=== PATIENT | male | born 1960 | race African-American/Black ===

== ENCOUNTER 2023-03-02 14:05 | Inpatient (IN) | payer OTHER ==
[2023-03-02 14:42] VITALS: BMI 29.4
[2023-03-02] MEDS ORDERED: BENZOCAINE/MENTHOL (CHLORASEPTIC ) LOZENGE MM PRN (14:53)
[2023-03-02] MEDS ORDERED: BENZONATATE 200 MG CAPSULE PO PRN (14:53)
[2023-03-02] MEDS ORDERED: MAGNESIUM HYDROX 2400MG/30ML ORAL SUSPENSION 30 ML CUP PO PRN (14:53)
[2023-03-02] MEDS ORDERED: guaiFENesin 600 MG TABLET.ER (FP) PO PRN (14:53)
[2023-03-02] MEDS ORDERED: METHOCARBAMOL 500 MG TABLET PO PRN (14:53)
[2023-03-02] MEDS ORDERED: LOPERAMIDE HCL 2 MG CAPSULE PO PRN (14:53)
[2023-03-02] MEDS ORDERED: BISMUTH SUBSALICYLATE 262 MG/15 ML BTL PO PRN (14:53)
[2023-03-02] MEDS ORDERED: NALOXONE HCL (KLOXXADO) 8 MG SPRAY NS PRN (14:53)
[2023-03-02] MEDS ORDERED: NICOTINE 10 MG CARTRIDGE (INHALER) IH PRN (14:53)
[2023-03-02] MEDS ORDERED: MAG HYDROX/AL HYDROX/SIMETH 30 ML UNIT-DOSE CUP PO PRN (14:53)
[2023-03-02] MEDS ORDERED: NICOTINE POLACRILEX 2 MG GUM BUC PRN (14:53)
[2023-03-02] MEDS ORDERED: POLYETHYLENE GLYCOL (HEALTHYLAX) 3350 17 GM PACKET PO PRN (14:53)
[2023-03-02] MEDS ORDERED: hydrOXYzine PAMOATE 25 MG CAPSULE (FP) PO PRN (14:53)
[2023-03-02] MEDS ORDERED: NICOTINE 14 MG/24 HOURS TOPICAL PATCH TD PRN (14:53)
[2023-03-02] MEDS ORDERED: ACETAMINOPHEN 325 MG TABLET (FP) PO PRN (14:53)
[2023-03-02] MEDS ORDERED: diazePAM 5 MG TABLET PO PRN (14:53)
[2023-03-02] MEDS ORDERED: DICYCLOMINE HCL 10 MG CAPSULE PO PRN (14:53)
[2023-03-02] MEDS ORDERED: cloNIDine HCL 0.1 MG TABLET PO PRN (14:53)
[2023-03-02] MEDS ORDERED: NALOXONE HCL 0.4 MG/ML VIAL IM PRN (14:53)
[2023-03-02] MEDS ORDERED: IBUPROFEN 400 MG TABLET (FP) PO PRN (14:53)
[2023-03-02] MEDS ORDERED: ONDANSETRON *ODT* 4 MG TABLET SL PRN (14:53)
[2023-03-02] MEDS ORDERED: IBUPROFEN 600 MG TABLET (FP) PO PRN (14:53)
[2023-03-02] MEDS ORDERED: HYDROCHLOROTHIAZIDE 25 MG TABLET (FP) PO ONE (15:10)
[2023-03-02] MEDS ORDERED: methaDONE HCL 10 MG TABLET (FOR DETOX USE ONLY) ONE (15:53)
[2023-03-02] MEDS ORDERED: HYDROCHLOROTHIAZIDE 12.5 MG CAPSULE (FP) ONE (15:53)
[2023-03-02] MEDS ORDERED: methaDONE HCL 10 MG TABLET (FOR DETOX USE ONLY) PO ONE (16:00)
[2023-03-02] MEDS: diazePAM 5 MG TABLET PO SCH ×2 (16:52→22:34)
[2023-03-02] MEDS ORDERED: diazePAM 5 MG TABLET ONE (16:54)
[2023-03-02] MEDS: MELATONIN 5 MG TABLETS PO SCH (22:33)
[2023-03-02] MEDS: THIAMINE HCL 100 MG TABLET (FP) PO SCH (22:33)
[2023-03-03] MEDS: diazePAM 5 MG TABLET PO SCH ×4 (05:14→22:10)
[2023-03-03] MEDS: HYDROCHLOROTHIAZIDE 25 MG TABLET (FP) PO SCH (10:10)
[2023-03-03] MEDS: PRENATAL VITAMINS W/ FOLIC ACID TABLET (FP) PO SCH (10:11)
[2023-03-03 12:22] LABS: HEMATOCRIT 37.1 % (35.4-49); HEMOGLOBIN 12.2 GM/dL (11.7-16.9); MCH 30.4 pg (25.7-33.7); MCHC 32.9 g/dl (32.0-35.9); MEAN CELL VOLUME 92.3 fl (80-96); MEAN PLT VOLUME 9.8 fl (7.5-11.1); PLATELET COUNT 210 10^3/uL (134-434); RBC 4.02 M/mm3 (4.00-5.60); RDW 13.4 % (11.9-15.9); WHITE BLOOD COUNT 6.5 K/mm3 (4.0-10.0)
[2023-03-03 12:40] LABS: BLOOD UREA NITROGEN 14.3 mg/dL (7-18)
[2023-03-03 12:41] LABS: ALBUMIN 3.7 g/dl (3.4-5.0); CALCIUM 9.5 mg/dL (8.5-10.1)
[2023-03-03 12:43] LABS: CREATININE 1.2 mg/dL (0.55-1.3)
[2023-03-03 12:45] LABS: BILIRUBIN,TOTAL 0.6 mg/dL (0.2-1); TOT PROT 8.2 g/dl (6.4-8.2)
[2023-03-03] MEDS: NYSTATIN 100,000 UNIT/GM TOPICAL CREAM 15 GM TUBE TP SCH (22:09)
[2023-03-03] MEDS: MELATONIN 5 MG TABLETS PO SCH (22:10)
[2023-03-03] MEDS: THIAMINE HCL 100 MG TABLET (FP) PO SCH (22:10)
[2023-03-04] MEDS: diazePAM 5 MG TABLET PO SCH ×3 (05:28→22:18)
[2023-03-04] MEDS ORDERED: methaDONE HCL 10 MG TABLET (FOR DETOX USE ONLY) PO ONE (10:00)
[2023-03-04] MEDS: PRENATAL VITAMINS W/ FOLIC ACID TABLET (FP) PO SCH (10:06)
[2023-03-04] MEDS: NYSTATIN 100,000 UNIT/GM TOPICAL CREAM 15 GM TUBE TP SCH ×2 (10:06→22:19)
[2023-03-04] MEDS: HYDROCHLOROTHIAZIDE 25 MG TABLET (FP) PO SCH (10:06)
[2023-03-04] MEDS: MELATONIN 5 MG TABLETS PO SCH (22:18)
[2023-03-04] MEDS: THIAMINE HCL 100 MG TABLET (FP) PO SCH (22:18)
[2023-03-05] MEDS: diazePAM 5 MG TABLET PO SCH ×2 (05:24→17:54)
[2023-03-05] MEDS: PRENATAL VITAMINS W/ FOLIC ACID TABLET (FP) PO SCH (11:00)
[2023-03-05] MEDS: HYDROCHLOROTHIAZIDE 25 MG TABLET (FP) PO SCH (11:00)
[2023-03-05] MEDS: NYSTATIN 100,000 UNIT/GM TOPICAL CREAM 15 GM TUBE TP SCH ×2 (11:03→22:26)
[2023-03-05 20:51] VITALS: RESP 18
[2023-03-05 22:26] LABS: EPI CELLS 4 /uL (0-25.1); HYALINE CASTS 1 /uL (0-3.1); URINE APPEARANCE CLOUDY; URINE BACTERIA 4850 /uL (0-1359); URINE BILIRUBIN NEGATIVE (NEGATIVE); URINE COLOR YELLOW; URINE GLUCOSE (UA) NEGATIVE (NEGATIVE); URINE KETONE NEGATIVE (NEGATIVE); URINE LEUK ESTERASE 3+ (NEGATIVE); URINE NITRITE POSITIVE (NEGATIVE); URINE PROTEIN 1+ (NEGATIVE); URINE RBC 62 /uL (0-23.9); URINE WBC 1455 /uL (0-25.8)
[2023-03-05] MEDS: THIAMINE HCL 100 MG TABLET (FP) PO SCH (22:27)
[2023-03-05] MEDS: MELATONIN 5 MG TABLETS PO SCH (22:27)
[2023-03-05 23:15] VITALS: BP 121/71; PULSE 68; TEMP 97.7
[2023-03-06] MEDS ORDERED: diazePAM 5 MG TABLET PO ONE (06:00)
[2023-03-06] MEDS ORDERED: methaDONE HCL 10 MG TABLET (FOR DETOX USE ONLY) PO ONE (10:00)
== END 2023-03-06 07:08 | disposition short-term general hospital (02) | DRG 773 ==
LOC: YASAS 14:05 → Y3N 16:08
PROVIDERS: ADMIT Allergy & Immunology; ATTEND Surgery
PROC: HZ2ZZZZ Detoxification Services for Substance Abuse Treatment (ICD-10-PCS; principal; 2023-03-02)
DX: F11.23 Opioid dependence with withdrawal (principal); F10.230 Alcohol dependence with withdrawal, uncomplicated; F17.210 Nicotine dependence, cigarettes, uncomplicated; N39.0 Urinary tract infection, site not specified; R31.9 Hematuria, unspecified; B35.9 Dermatophytosis, unspecified; N40.0 Benign prostatic hyperplasia without lower urinary tract symptoms; Z93.51 Cutaneous-vesicostomy status
CPT/HCPCS: 36415; 80053; 80061; 81003; 85027; 86593; 86780; 87086; 87186; 93005; 93010; C9803-CS; U0003; U0005

== ENCOUNTER 2023-03-06 00:25 | Inpatient (IN) | payer OTHER ==
[2023-03-06 02:18] LABS: BASO % 0.7 % (0-2.0); EOS % 6.4 % (0-4.5); HEMATOCRIT 36.4 % (35.4-49); HEMOGLOBIN 11.9 GM/dL (11.7-16.9); LYMPH % 29.3 % (8-40); MCH 30.2 pg (25.7-33.7); MCHC 32.7 g/dl (32.0-35.9); MEAN CELL VOLUME 92.3 fl (80-96); MONO % 14.2 % (3.8-10.2); NEUT % 49.4 % (42.8-82.8); PLATELET COUNT 211 10^3/uL (134-434); RBC 3.95 M/mm3 (4.00-5.60); RDW 13.5 % (11.9-15.9); WHITE BLOOD COUNT 5.8 K/mm3 (4.0-10.0)
[2023-03-06 02:22] LABS: EPI CELLS 3 /uL (0-25.1); HYALINE CASTS 0 /uL (0-3.1); URINE APPEARANCE CLOUDY; URINE BACTERIA >9,000 /uL (0-1359); URINE BILIRUBIN NEGATIVE (NEGATIVE); URINE COLOR YELLOW; URINE GLUCOSE (UA) NEGATIVE (NEGATIVE); URINE KETONE NEGATIVE (NEGATIVE); URINE LEUK ESTERASE 3+ (NEGATIVE); URINE NITRITE POSITIVE (NEGATIVE); URINE PROTEIN 1+ (NEGATIVE); URINE RBC 92 /uL (0-23.9); URINE WBC 1252 /uL (0-25.8)
[2023-03-06 02:41] LABS: CALCIUM 9.8 mg/dL (8.5-10.1)
[2023-03-06 02:42] LABS: ALBUMIN 3.5 g/dl (3.4-5.0); BLOOD UREA NITROGEN 17.4 mg/dL (7-18)
[2023-03-06 02:44] LABS: CREATININE 0.9 mg/dL (0.55-1.3)
[2023-03-06 02:46] LABS: BILIRUBIN,TOTAL 0.3 mg/dL (0.2-1); TOT PROT 7.6 g/dl (6.4-8.2)
[2023-03-06] MEDS ORDERED: PIPERACILLIN/TAZOB 3.375 GM 3.375 GM in DEXTROSE 5%-WATER - 50 ML IVPB ONE (03:01)
[2023-03-06] MEDS ORDERED: PIPERACILLIN/TAZOB 3.375 GM 3.375 GM/50 ML BAG IVPB ONE (03:17)
[2023-03-06] MEDS ORDERED: CARVEDILOL 25 MG TABLET (FP) PO SCH (05:15)
[2023-03-06 05:49] VITALS: BMI 31.0
[2023-03-06] MEDS ORDERED: diazePAM 5 MG TABLET PO ONE (06:00)
[2023-03-06] MEDS ORDERED: ACETAMINOPHEN 325 MG TABLET (FP) PO PRN (08:07)
[2023-03-06] MEDS: CARVEDILOL 12.5 MG TABLET (FP) PO SCH ×2 (09:47→22:44)
[2023-03-06 09:53] LABS: BASO % 0.7 % (0-2.0); EOS % 5.4 % (0-4.5); HEMATOCRIT 34.1 % (35.4-49); HEMOGLOBIN 11.4 GM/dL (11.7-16.9); LYMPH % 27.6 % (8-40); MCH 30.5 pg (25.7-33.7); MCHC 33.3 g/dl (32.0-35.9); MEAN CELL VOLUME 91.7 fl (80-96); MEAN PLT VOLUME 9.1 fl (7.5-11.1); MONO % 12.6 % (3.8-10.2); NEUT % 53.7 % (42.8-82.8); PLATELET COUNT 195 10^3/uL (134-434); RBC 3.72 M/mm3 (4.00-5.60); RDW 13.2 % (11.9-15.9); WHITE BLOOD COUNT 5.6 K/mm3 (4.0-10.0)
[2023-03-06] MEDS ORDERED: methaDONE HCL 10 MG TABLET PO ONE (10:00)
[2023-03-06 10:37] LABS: ALBUMIN 3.2 g/dl (3.4-5.0); BLOOD UREA NITROGEN 17.2 mg/dL (7-18); CALCIUM 9.1 mg/dL (8.5-10.1)
[2023-03-06 10:41] LABS: CREATININE 0.9 mg/dL (0.55-1.3)
[2023-03-06 10:42] LABS: BILIRUBIN,TOTAL 0.4 mg/dL (0.2-1); TOT PROT 6.9 g/dl (6.4-8.2)
[2023-03-06 11:48] LABS: HIV INTERPRETATION NEGATIVE (NEGATIVE)
[2023-03-06] MEDS: NYSTATIN 100,000 UNIT/GM TOPICAL CREAM 15 GM TUBE TP SCH ×3 (11:58→22:45)
[2023-03-06] MEDS: CEFTRIAXONE 1 GM in DEXTROSE 5%-WATER - 50 ML IVPB SCH (13:10)
[2023-03-06] MEDS ORDERED: LORazepam 1 MG TABLET PO PRN (17:49)
[2023-03-07] MEDS: NYSTATIN 100,000 UNIT/GM TOPICAL CREAM 15 GM TUBE TP SCH ×3 (06:35→21:24)
[2023-03-07] MEDS: SODIUM CHLORIDE 1,000 ML IV SCH ×2 (08:29→23:03)
[2023-03-07 09:08] LABS: BASO % 0.8 % (0-2.0); EOS % 4.8 % (0-4.5); HEMATOCRIT 37.2 % (35.4-49); HEMOGLOBIN 12.2 GM/dL (11.7-16.9); MCH 30.2 pg (25.7-33.7); MCHC 32.7 g/dl (32.0-35.9); MEAN CELL VOLUME 92.3 fl (80-96); MEAN PLT VOLUME 9.1 fl (7.5-11.1); MONO % 10.2 % (3.8-10.2); NEUT % 61.2 % (42.8-82.8); PLATELET COUNT 211 10^3/uL (134-434); RBC 4.04 M/mm3 (4.00-5.60); RDW 13.1 % (11.9-15.9); WHITE BLOOD COUNT 6.1 K/mm3 (4.0-10.0)
[2023-03-07 09:33] LABS: ALBUMIN 3.3 g/dl (3.4-5.0); CALCIUM 9.4 mg/dL (8.5-10.1)
[2023-03-07 09:34] LABS: BILIRUBIN,TOTAL 0.4 mg/dL (0.2-1)
[2023-03-07 09:36] LABS: TOT PROT 7.2 g/dl (6.4-8.2)
[2023-03-07 09:38] LABS: BLOOD UREA NITROGEN 14.6 mg/dL (7-18)
[2023-03-07] MEDS: CEFTRIAXONE 1 GM in DEXTROSE 5%-WATER - 50 ML IVPB SCH (10:09)
[2023-03-07] MEDS: CARVEDILOL 12.5 MG TABLET (FP) PO SCH ×2 (10:10→21:24)
[2023-03-07] MEDS: DOCUSATE SODIUM 100 MG CAPSULE (FP) PO SCH (21:30)
[2023-03-08] MEDS: NYSTATIN 100,000 UNIT/GM TOPICAL CREAM 15 GM TUBE TP SCH ×3 (06:40→22:43)
[2023-03-08 07:28] LABS: BASO % 0.7 % (0-2.0); HEMATOCRIT 33.5 % (35.4-49); HEMOGLOBIN 11.1 GM/dL (11.7-16.9); LYMPH % 29.9 % (8-40); MCH 30.6 pg (25.7-33.7); MCHC 33.2 g/dl (32.0-35.9); MEAN CELL VOLUME 92.2 fl (80-96); MEAN PLT VOLUME 8.9 fl (7.5-11.1); MONO % 11.8 % (3.8-10.2); NEUT % 52.6 % (42.8-82.8); PLATELET COUNT 184 10^3/uL (134-434); RBC 3.63 M/mm3 (4.00-5.60); RDW 13.2 % (11.9-15.9); WHITE BLOOD COUNT 5.7 K/mm3 (4.0-10.0)
[2023-03-08 07:44] LABS: CALCIUM 8.8 mg/dL (8.5-10.1)
[2023-03-08 07:45] LABS: ALBUMIN 2.9 g/dl (3.4-5.0); BLOOD UREA NITROGEN 17.2 mg/dL (7-18); MAGNESIUM 1.9 mg/dL (1.8-2.4)
[2023-03-08 07:48] LABS: CREATININE 0.8 mg/dL (0.55-1.3)
[2023-03-08 07:49] LABS: BILIRUBIN,TOTAL 0.2 mg/dL (0.2-1); TOT PROT 6.5 g/dl (6.4-8.2)
[2023-03-08] MEDS: CEFTRIAXONE 1 GM in DEXTROSE 5%-WATER - 50 ML IVPB SCH (10:18)
[2023-03-08] MEDS: CARVEDILOL 12.5 MG TABLET (FP) PO SCH ×2 (10:18→22:39)
[2023-03-08] MEDS: POLYETHYLENE GLYCOL (HEALTHYLAX) 3350 17 GM PACKET PO SCH (10:18)
[2023-03-08] MEDS: ENOXAPARIN NA (PORCINE) 40 MG/0.4 ML DISP.SYRIN SQ SCH (10:18)
[2023-03-08] MEDS: DOCUSATE SODIUM 100 MG CAPSULE (FP) PO SCH ×2 (10:18→22:43)
[2023-03-08] MEDS: SODIUM CHLORIDE 1,000 ML IV SCH ×2 (10:22→22:39)
[2023-03-08] MEDS ORDERED: VANCOMYCIN 1,000 MG in DEXTROSE 5%-WATER - 250 ML IVPB SCH (16:15)
[2023-03-08] MEDS: VANCOMYCIN/WATER FOR INJ (PEG) 1,000 MG/200 ML BAG IVPB SCH (16:40)
[2023-03-09] MEDS: VANCOMYCIN/WATER FOR INJ (PEG) 1,000 MG/200 ML BAG IVPB SCH ×2 (05:58→17:18)
[2023-03-09] MEDS: NYSTATIN 100,000 UNIT/GM TOPICAL CREAM 15 GM TUBE TP SCH ×3 (06:21→22:56)
[2023-03-09] MEDS: SODIUM CHLORIDE 1,000 ML IV SCH ×2 (08:00→11:51)
[2023-03-09] MEDS: ENOXAPARIN NA (PORCINE) 40 MG/0.4 ML DISP.SYRIN SQ SCH (10:05)
[2023-03-09] MEDS: CARVEDILOL 12.5 MG TABLET (FP) PO SCH ×2 (10:05→22:54)
[2023-03-09] MEDS: DOCUSATE SODIUM 100 MG CAPSULE (FP) PO SCH ×3 (10:05→22:55)
[2023-03-09] MEDS: POLYETHYLENE GLYCOL (HEALTHYLAX) 3350 17 GM PACKET PO SCH (10:06)
[2023-03-09 10:09] LABS: BASO % 0.4 % (0-2.0); EOS % 3.5 % (0-4.5); HEMATOCRIT 33.6 % (35.4-49); HEMOGLOBIN 11.4 GM/dL (11.7-16.9); LYMPH % 21.8 % (8-40); MCH 31.3 pg (25.7-33.7); MCHC 33.8 g/dl (32.0-35.9); MEAN CELL VOLUME 92.5 fl (80-96); MONO % 5.6 % (3.8-10.2); NEUT % 68.7 % (42.8-82.8); PLATELET COUNT 184 10^3/uL (134-434); RBC 3.63 M/mm3 (4.00-5.60); WHITE BLOOD COUNT 5.3 K/mm3 (4.0-10.0)
[2023-03-09 10:24] LABS: CALCIUM 8.2 mg/dL (8.5-10.1)
[2023-03-09 10:25] LABS: ALBUMIN 2.9 g/dl (3.4-5.0); BLOOD UREA NITROGEN 13.7 mg/dL (7-18); MAGNESIUM 1.7 mg/dL (1.8-2.4)
[2023-03-09 10:28] LABS: CREATININE 0.9 mg/dL (0.55-1.3)
[2023-03-09 10:29] LABS: BILIRUBIN,TOTAL 0.3 mg/dL (0.2-1); TOT PROT 6.6 g/dl (6.4-8.2)
[2023-03-10] MEDS: VANCOMYCIN/WATER FOR INJ (PEG) 1,000 MG/200 ML BAG IVPB SCH ×2 (05:39→16:34)
[2023-03-10] MEDS: NYSTATIN 100,000 UNIT/GM TOPICAL CREAM 15 GM TUBE TP SCH ×3 (05:40→22:00)
[2023-03-10] MEDS: SODIUM CHLORIDE 1,000 ML IV SCH ×2 (07:45→14:02)
[2023-03-10 09:28] LABS: BASO % 0.9 % (0-2.0); HEMATOCRIT 34.2 % (35.4-49); HEMOGLOBIN 11.4 GM/dL (11.7-16.9); MCHC 33.3 g/dl (32.0-35.9); MEAN CELL VOLUME 93.1 fl (80-96); MEAN PLT VOLUME 10.9 fl (7.5-11.1); MONO % 7.5 % (3.8-10.2); NEUT % 68.6 % (42.8-82.8); PLATELET COUNT 137 10^3/uL (134-434); RBC 3.67 M/mm3 (4.00-5.60); RDW 13.2 % (11.9-15.9); WHITE BLOOD COUNT 5.6 K/mm3 (4.0-10.0)
[2023-03-10] MEDS: POLYETHYLENE GLYCOL (HEALTHYLAX) 3350 17 GM PACKET PO SCH (09:53)
[2023-03-10] MEDS: CARVEDILOL 12.5 MG TABLET (FP) PO SCH ×2 (09:53→22:00)
[2023-03-10] MEDS: DOCUSATE SODIUM 100 MG CAPSULE (FP) PO SCH (09:53)
[2023-03-10] MEDS: ENOXAPARIN NA (PORCINE) 40 MG/0.4 ML DISP.SYRIN SQ SCH (09:53)
[2023-03-10 09:55] LABS: CALCIUM 8.5 mg/dL (8.5-10.1)
[2023-03-10 09:56] LABS: BLOOD UREA NITROGEN 11.2 mg/dL (7-18); MAGNESIUM 1.6 mg/dL (1.8-2.4)
[2023-03-10 10:01] LABS: BILIRUBIN,TOTAL 0.4 mg/dL (0.2-1); CREATININE 0.9 mg/dL (0.55-1.3); TOT PROT 6.9 g/dl (6.4-8.2)
[2023-03-10] MEDS: MAGNESIUM OXIDE 400 MG TABLET (FP) PO SCH (22:00)
[2023-03-11] MEDS: VANCOMYCIN/WATER FOR INJ (PEG) 1,000 MG/200 ML BAG IVPB SCH ×2 (05:36→16:53)
[2023-03-11] MEDS: NYSTATIN 100,000 UNIT/GM TOPICAL CREAM 15 GM TUBE TP SCH ×3 (06:04→22:03)
[2023-03-11 10:21] LABS: BASO % 0.5 % (0-2.0); EOS % 2.7 % (0-4.5); HEMATOCRIT 39.1 % (35.4-49); HEMOGLOBIN 13.1 GM/dL (11.7-16.9); MCH 30.9 pg (25.7-33.7); MCHC 33.4 g/dl (32.0-35.9); MEAN CELL VOLUME 92.4 fl (80-96); MEAN PLT VOLUME 10.1 fl (7.5-11.1); MONO % 5.4 % (3.8-10.2); NEUT % 76.4 % (42.8-82.8); PLATELET COUNT 209 10^3/uL (134-434); RBC 4.24 M/mm3 (4.00-5.60); RDW 13.4 % (11.9-15.9); WHITE BLOOD COUNT 7.1 K/mm3 (4.0-10.0)
[2023-03-11] MEDS: SODIUM CHLORIDE 1,000 ML IV SCH (10:39)
[2023-03-11] MEDS: CARVEDILOL 12.5 MG TABLET (FP) PO SCH ×2 (10:41→22:04)
[2023-03-11] MEDS: ENOXAPARIN NA (PORCINE) 40 MG/0.4 ML DISP.SYRIN SQ SCH (10:41)
[2023-03-11] MEDS: MAGNESIUM OXIDE 400 MG TABLET (FP) PO SCH ×2 (10:41→22:04)
[2023-03-11 10:54] LABS: MAGNESIUM 1.7 mg/dL (1.8-2.4)
[2023-03-11 10:56] LABS: CREATININE 0.9 mg/dL (0.55-1.3)
[2023-03-11 10:58] LABS: BILIRUBIN,TOTAL 1.2 mg/dL (0.2-1); TOT PROT 8.3 g/dl (6.4-8.2)
[2023-03-11 11:08] LABS: ALBUMIN 3.6 g/dl (3.4-5.0)
[2023-03-12] MEDS: NYSTATIN 100,000 UNIT/GM TOPICAL CREAM 15 GM TUBE TP SCH (05:16)
[2023-03-12] MEDS ORDERED: DOXYCYCLINE HYCLATE 100 MG CAPSULE PO SCH (10:00)
[2023-03-12] MEDS: CARVEDILOL 12.5 MG TABLET (FP) PO SCH (10:55)
[2023-03-12] MEDS: MAGNESIUM OXIDE 400 MG TABLET (FP) PO SCH (10:56)
[2023-03-12] MEDS: ENOXAPARIN NA (PORCINE) 40 MG/0.4 ML DISP.SYRIN SQ SCH (10:56)
[2023-03-12 13:14] VITALS: BP 136/75; PULSE 76; RESP 18; TEMP 98
== END 2023-03-12 13:49 | disposition other institution (70) | DRG 466 ==
LOC: JER 00:25 → INTOOBSV 02:39 → JERBED 02:39 → J8W 05:43 → OBSVTOIN 03-08 16:25
PROVIDERS: ADMIT Internal Medicine; ATTEND Nurse Practitioner Acute Care
DX: T83.511A Infection and inflammatory reaction due to indwelling urethral catheter, initial encounter (principal); F11.20 Opioid dependence, uncomplicated; I10 Essential (primary) hypertension; Z93.50 Unspecified cystostomy status; F10.20 Alcohol dependence, uncomplicated; F17.210 Nicotine dependence, cigarettes, uncomplicated; R31.9 Hematuria, unspecified; N39.0 Urinary tract infection, site not specified; N40.0 Benign prostatic hyperplasia without lower urinary tract symptoms; Y83.9 Surgical procedure, unspecified as the cause of abnormal reaction of the patient, or of later complication, without mention of misadventure at the time of the procedure
CPT/HCPCS: 0241U-QW; 36415; 80053; 81003; 83735; 85025; 87086; 87186; 87389; 97116-GP; 97161-GP; 99285-25; G0378

== ENCOUNTER 2023-08-05 13:11 | Inpatient (IN) | payer OTHER ==
[2023-08-05 13:40] VITALS: BMI 26.9
[2023-08-05] MEDS ORDERED: NALOXONE HCL (KLOXXADO) 8 MG SPRAY NS PRN (14:02)
[2023-08-05] MEDS ORDERED: P-EPHED 60MG/TRIPROLIDI 2.5MG TABLET PO PRN (14:02)
[2023-08-05] MEDS ORDERED: LOPERAMIDE HCL 2 MG CAPSULE PO PRN (14:02)
[2023-08-05] MEDS ORDERED: IBUPROFEN 600 MG TABLET (FP) PO PRN (14:02)
[2023-08-05] MEDS ORDERED: MAG HYDROX/AL HYDROX/SIMETH 30 ML UNIT-DOSE CUP PO PRN (14:02)
[2023-08-05] MEDS ORDERED: ONDANSETRON *ODT* 4 MG TABLET SL PRN (14:02)
[2023-08-05] MEDS ORDERED: IBUPROFEN 400 MG TABLET (FP) PO PRN (14:02)
[2023-08-05] MEDS ORDERED: MAGNESIUM HYDROX 2400MG/30ML ORAL SUSPENSION 30 ML CUP PO PRN (14:02)
[2023-08-05] MEDS ORDERED: POLYETHYLENE GLYCOL (HEALTHYLAX) 3350 17 GM PACKET PO PRN (14:02)
[2023-08-05] MEDS ORDERED: BISMUTH SUBSALICYLATE 524 MG/30 ML PO PRN (14:02)
[2023-08-05] MEDS ORDERED: guaiFENesin 600 MG TABLET.ER (FP) PO PRN (14:02)
[2023-08-05] MEDS ORDERED: NALOXONE HCL 0.4 MG/ML VIAL IM PRN (14:02)
[2023-08-05] MEDS ORDERED: ACETAMINOPHEN 325 MG TABLET (FP) PO PRN (14:02)
[2023-08-05] MEDS ORDERED: BENZONATATE 200 MG CAPSULE PO PRN (14:02)
[2023-08-05] MEDS ORDERED: BENZOCAINE/MENTHOL (CHLORASEPTIC ) LOZENGE MM PRN (14:02)
[2023-08-05] MEDS ORDERED: NICOTINE POLACRILEX 2 MG GUM BUC PRN (14:02)
[2023-08-05] MEDS: MELATONIN 5 MG TABLETS PO SCH (22:30)
[2023-08-05] MEDS: THIAMINE HCL 100 MG TABLET (FP) PO SCH (22:30)
[2023-08-06] MEDS: PRENATAL VITAMINS W/ FOLIC ACID TABLET (FP) PO SCH (09:17)
[2023-08-06 10:59] LABS: HEMATOCRIT 38.1 % (35.4-49); HEMOGLOBIN 12.6 GM/dL (11.7-16.9); MCH 30.4 pg (25.7-33.7); MEAN CELL VOLUME 92.2 fl (80-96); MEAN PLT VOLUME 9.9 fl (7.5-11.1); PLATELET COUNT 231 10^3/uL (134-434); RBC 4.14 M/mm3 (4.00-5.60); RDW 13.1 % (11.9-15.9); WHITE BLOOD COUNT 6.3 K/mm3 (4.0-10.0)
[2023-08-06 11:25] LABS: POTASSIUM 4.4 mmol/L (3.5-5.1)
[2023-08-06 11:29] LABS: CALCIUM 9.5 mg/dL (8.5-10.1)
[2023-08-06 11:30] LABS: BLOOD UREA NITROGEN 17.5 mg/dL (7-18)
[2023-08-06 11:32] LABS: BILIRUBIN,TOTAL 0.7 mg/dL (0.2-1); TOT PROT 8.4 g/dl (6.4-8.2)
[2023-08-06] MEDS: MELATONIN 5 MG TABLETS PO SCH (22:47)
[2023-08-06] MEDS: THIAMINE HCL 100 MG TABLET (FP) PO SCH (22:47)
[2023-08-07 09:02] VITALS: RESP 18
[2023-08-07] MEDS ORDERED: PENICILLIN G BENZATHINE 2,400,000 UNIT/4 ML PFS IM ONE (09:14)
[2023-08-07] MEDS: PRENATAL VITAMINS W/ FOLIC ACID TABLET (FP) PO SCH (09:54)
[2023-08-07] MEDS ORDERED: HYDROCHLOROTHIAZIDE 25 MG TABLET (FP) PO SCH (10:00)
[2023-08-07] MEDS ORDERED: CARVEDILOL 12.5 MG TABLET (FP) PO SCH (10:00)
[2023-08-07] MEDS ORDERED: FINASTERIDE 5 MG TABLET (FP) PO SCH (10:00)
[2023-08-07 13:44] VITALS: BP 129/75; PULSE 54; TEMP 97.6
== END 2023-08-07 17:10 | disposition other institution (70) | DRG 773 ==
LOC: SUATTDRO 13:11 → YASAS 13:11 → Y3N 16:37 → UNDOADMIN 16:37 → Y3N 08-06 16:32
PROVIDERS: ADMIT Allergy & Immunology; ATTEND Surgery
PROC: HZ2ZZZZ Detoxification Services for Substance Abuse Treatment (ICD-10-PCS; principal; 2023-08-06)
DX: F11.20 Opioid dependence, uncomplicated (principal); F17.210 Nicotine dependence, cigarettes, uncomplicated; F41.9 Anxiety disorder, unspecified; G47.00 Insomnia, unspecified; I10 Essential (primary) hypertension; N40.1 Benign prostatic hyperplasia with lower urinary tract symptoms; R33.9 Retention of urine, unspecified; Z93.59 Other cystostomy status; Z86.19 Personal history of other infectious and parasitic diseases; Z56.0 Unemployment, unspecified; Z59.00 Homelessness unspecified
CPT/HCPCS: 36415; 80053; 83036; 85027; 86593; 86780; 87635; 87811

== ENCOUNTER 2023-08-06 11:00 | Emergency (ER) | payer OTHER ==
[2023-08-06 12:32] VITALS: RESP 19; BMI 27.2
[2023-08-06] MEDS ORDERED: WATER FOR INJ,STERILE 10 ML ONE (13:13)
[2023-08-06 14:20] VITALS: BP 122/70; PULSE 77; TEMP 98.6
== END 2023-08-06 15:04 | disposition home or self-care (01) ==
LOC: JER 11:00
DX: R33.9 Retention of urine, unspecified (principal); T83.090A Other mechanical complication of cystostomy catheter, initial encounter
CPT/HCPCS: 99283-25

== ENCOUNTER 2023-08-07 17:33 | Inpatient (IN) | payer OTHER ==
[2023-08-07] MEDS ORDERED: COLLOIDAL OATMEAL 1 BAR EACH TP PRN (18:14)
[2023-08-07] MEDS ORDERED: POLYETHYLENE GLYCOL (HEALTHYLAX) 3350 17 GM PACKET PO PRN (18:14)
[2023-08-07] MEDS ORDERED: MAGNESIUM HYDROX 2400MG/30ML ORAL SUSPENSION 30 ML CUP PO PRN (18:14)
[2023-08-07] MEDS ORDERED: AMMONIUM LACTATE 12% LOTION 225 GM BOTTLE TP PRN (18:14)
[2023-08-07] MEDS ORDERED: MAG HYDROX/AL HYDROX/SIMETH 30 ML UNIT-DOSE CUP PO PRN (18:14)
[2023-08-07] MEDS ORDERED: ACETAMINOPHEN 325 MG TABLET (FP) PO PRN ×2 (18:14→18:16)
[2023-08-07] MEDS ORDERED: guaiFENesin 600 MG TABLET.ER (FP) PO PRN (18:14)
[2023-08-07] MEDS ORDERED: LOPERAMIDE HCL 2 MG CAPSULE PO PRN (18:14)
[2023-08-07] MEDS ORDERED: BENZOCAINE/MENTHOL (CHLORASEPTIC ) LOZENGE MM PRN (18:14)
[2023-08-07] MEDS ORDERED: P-EPHED 60MG/TRIPROLIDI 2.5MG TABLET PO PRN (18:14)
[2023-08-07] MEDS ORDERED: BENZONATATE 200 MG CAPSULE PO PRN (18:14)
[2023-08-07] MEDS: CARVEDILOL 12.5 MG TABLET (FP) PO SCH (21:39)
[2023-08-07] MEDS: MELATONIN 5 MG TABLETS PO SCH (21:40)
[2023-08-07] MEDS: THIAMINE HCL 100 MG TABLET (FP) PO SCH (21:40)
[2023-08-08] MEDS: HYDROCHLOROTHIAZIDE 25 MG TABLET (FP) PO SCH (09:38)
[2023-08-08] MEDS: FINASTERIDE 5 MG TABLET (FP) PO SCH (09:38)
[2023-08-08] MEDS: CARVEDILOL 12.5 MG TABLET (FP) PO SCH ×2 (09:38→21:42)
[2023-08-08] MEDS: PRENATAL VITAMINS W/ FOLIC ACID TABLET (FP) PO SCH (09:38)
[2023-08-08] MEDS: THIAMINE HCL 100 MG TABLET (FP) PO SCH (21:42)
[2023-08-08] MEDS: MELATONIN 5 MG TABLETS PO SCH (21:42)
[2023-08-09] MEDS: PRENATAL VITAMINS W/ FOLIC ACID TABLET (FP) PO SCH (10:33)
[2023-08-09] MEDS: HYDROCHLOROTHIAZIDE 25 MG TABLET (FP) PO SCH (10:33)
[2023-08-09] MEDS: CARVEDILOL 12.5 MG TABLET (FP) PO SCH ×2 (10:36→21:31)
[2023-08-09] MEDS: FINASTERIDE 5 MG TABLET (FP) PO SCH (10:36)
[2023-08-09] MEDS: THIAMINE HCL 100 MG TABLET (FP) PO SCH (21:31)
[2023-08-09] MEDS: MELATONIN 5 MG TABLETS PO SCH (21:31)
[2023-08-10 06:55] VITALS: RESP 18; TEMP 97.8
[2023-08-10] MEDS: CARVEDILOL 12.5 MG TABLET (FP) PO SCH (10:42)
[2023-08-10] MEDS: FINASTERIDE 5 MG TABLET (FP) PO SCH (10:42)
[2023-08-10] MEDS: HYDROCHLOROTHIAZIDE 25 MG TABLET (FP) PO SCH (10:42)
[2023-08-10] MEDS: PRENATAL VITAMINS W/ FOLIC ACID TABLET (FP) PO SCH (10:44)
[2023-08-10] MEDS: MELATONIN 5 MG TABLETS PO SCH (21:48)
[2023-08-10] MEDS: THIAMINE HCL 100 MG TABLET (FP) PO SCH (21:48)
[2023-08-11 07:17] VITALS: BP 129/72; PULSE 73
[2023-08-11] MEDS ORDERED: CARVEDILOL 12.5 MG TABLET (FP) PO SCH (10:00)
== END 2023-08-11 09:44 | disposition left against medical advice (07) | DRG 770 ==
LOC: YASAS 17:33 → Y3W 17:36
PROVIDERS: ADMIT Allergy & Immunology; ATTEND Psychiatry & Neurology Pain Medicine
PROC: HZ42ZZZ Group Counseling for Substance Abuse Treatment, Cognitive-Behavioral (ICD-10-PCS; principal; 2023-08-07)
DX: F11.20 Opioid dependence, uncomplicated (principal); F17.210 Nicotine dependence, cigarettes, uncomplicated; F32.A Depression, unspecified; E78.5 Hyperlipidemia, unspecified; I10 Essential (primary) hypertension; N40.0 Benign prostatic hyperplasia without lower urinary tract symptoms; R26.89 Other abnormalities of gait and mobility; Z86.19 Personal history of other infectious and parasitic diseases